=== PATIENT | male | born 1950 | race Caucasian/White ===

== ENCOUNTER 2016-12-30 16:25 | Emergency (ER) | payer MEDICARE ==
[2016-12-30 16:50] LABS: URINE APPEARANCE CLEAR; URINE BILIRUBIN NEGATIVE (NEGATIVE); URINE BLOOD 1+ (NEGATIVE); URINE COLOR YELLOW; URINE GLUCOSE (UA) NEGATIVE (NEGATIVE); URINE LEUKOCYTE ESTERASE NEGATIVE (NEGATIVE); URINE NITRITE NEGATIVE (NEGATIVE); URINE PROTEIN NEGATIVE (NEGATIVE); URINE UROBILINOGEN NORMAL (0-1 mg/dl)
[2016-12-30 16:56] LABS: URINE BACTERIA RARE; URINE MUCUS 1+
--- NOTE | 2016-12-30 21:18 | CT ---
SIMBA ZARAGOZA Noncontrast CT abdomen and Pelvis COMPARISON:05/26/2014 CLINICAL HISTORY: Abdominal pain starting last night PROCEDURE: Helical CT using multidetector technique was applied to the abdomen and pelvis. No contrast was given per ordering physician. Sagittal, axial and coronal images are reviewed. Findings CT abdomen (noncontrast): There is a small amount of basilar atelectasis. Heart is not enlarged. There is no pericardial effusion. Liver is normal size. Adjacent to the gallbladder, there is a 2.3 cm cyst that is increased from approximately 1.6 cm on the prior exam. In the right hepatic lobe, there are 3 stable subcentimeter hypodensities and is similar lesion is noted within the left hepatic lobe. These subcentimeter lesions are too small to characterize on this noncontrast CT. Cysts are favored. The gallbladder is not distended. There is no suspicious biliary dilation. There is some fatty replacement of the pancreas. Spleen, adrenal glands, IVC and portal vein are normal. Off of the upper pole of left kidney, there is an 11 mm cyst similar to the prior. There is a duplicated collecting system on the left. There is mild right hydronephrosis and ureterectasis with periureteral and perinephric stranding. Stomach, small bowel and colon are normal. There is no free air, free fluid or suspicious adenopathy. Multilevel degenerative disease of the spine is present and most significant at L4-5 and L5-S1. There is a small fat filled umbilical hernia. CT pelvis (noncontrast): The bladder is within normal limits. Prostate is mildly prominent. Seminal vesicles are symmetric. In the distal right ureter, just above the ureterovesical junction, there is a 4.3 mm calculus. Above this calculus, the right ureter is dilated and there is periureteral stranding. Left ureter is normal. Small bowel is within normal limits. The sigmoid colon is quite redundant. The appendix is not identified as a separate structure. There is no free air, free fluid or suspicious adenopathy. IMPRESSION: 1. 4.3 mm calculus in the distal right ureter just above the ureterovesical junction causing mild hydronephrosis and ureterectasis 2. 11 mm left renal cyst similar to the prior 3. 2.3 cm enlarging cyst in the right hepatic lobe adjacent to the gallbladder. There are 4 other subcentimeter hypodensities which are too small to characterize on this exam but are thought to be cysts. The smaller lesions are similar to CT dated 05/26/2014 4. Multilevel degenerative disease of the spine 5. Small fat filled umbilical hernia 6. Nonvisualization of the appendix Note:The above report was uploaded to [facility]'s electronic medical records system at 2114 hours.
== END 2016-12-30 21:49 | disposition home or self-care (01) ==
LOC: SUPCPDRO 16:25 → ED 16:25
DX: N13.2 Hydronephrosis with renal and ureteral calculous obstruction (principal); K76.89 Other specified diseases of liver; I10 Essential (primary) hypertension; G20 Parkinson's disease